=== PATIENT | male | born 1955 | race Caucasian/White ===

== ENCOUNTER 2022-06-29 08:44 | Day surgery (SDC) | payer BC ==
[2022-06-27 12:58] VITALS: BMI 30.8
[~2022-06-29 08:44] MED LIST: LACTATED RINGERS 1,000 ML IV SCH
[2022-06-29] MEDS ORDERED: LIDOCAINE 1% (10MG/ML) FOR IV START INTRADERMA ONE (09:12)
[2022-06-29 09:17] LABS: Glucose,Whole Blood 130 mg/dL (70-110)
[2022-06-29 09:19] VITALS: TEMP 97.4
[2022-06-29] MEDS ORDERED: PROPOFOL 10 MG/ML 20 ML VIAL IV ONE (10:24)
--- NOTE | 2022-06-29 10:43 | P.PCN ---
Date of Procedure: 06/29/22 Procedure(s) Performed: BRIEF HISTORY: Patient is a 66-year-old pleasant male scheduled for an elective colonoscopy as a part of screening for colorectal neoplasia. PROCEDURE PERFORMED: Colonoscopy. PREOPERATIVE DIAGNOSIS: Screening for colon cancer. IV sedation per Anesthesia. PROCEDURE: After informed consent was obtained, the patient, was brought into the endoscopy unit. IV sedation was administered by Anesthesia under continuous monitoring. Digital rectal examination was normal. Initially the Olympus CF-160 flexible video colonoscope was then inserted in the rectum, gradually advanced into the cecum without any difficulty. Careful examination was performed as the scope was gradually being withdrawn. Ileocecal valve and the appendiceal orifice were visualized and appeared normal. Prep was excellent. Mucosa of the cecum, ascending colon, transverse colon, descending colon, sigmoid colon, and rectum appeared normal. Retroflexion was performed in the rectum and no lesions were seen. The patient tolerated the procedure well. IMPRESSION: Normal-appearing colon from rectum to cecum with no evidence of colorectal neoplasia. RECOMMENDATIONS: Findings of this examination were discussed with the patient as well as his family. He was advised to have a repeat screening colonoscopy in 10 years..
[2022-06-29 11:06] VITALS: BP 138/88; PULSE 75; RESP 15
== END 2022-06-29 11:20 | disposition home or self-care (01) ==
LOC: ORWHC2ENDO 08:44
PROVIDERS: ATTEND Internal Medicine Gastroenterology
DX: Z12.11 Encounter for screening for malignant neoplasm of colon (principal); I10 Essential (primary) hypertension; E78.5 Hyperlipidemia, unspecified; E11.9 Type 2 diabetes mellitus without complications
CPT/HCPCS: 45378; J2704

== ENCOUNTER → 2024-02-11 | Outpatient (CLI) | payer BC ==
--- NOTE | 2024-02-12 07:32 | XR ---
EXAMINATION TYPE: XR KUB DATE OF EXAM: 02/11/2024 HISTORY: Pain Comparison: None. Single KUB is submitted for interpretation. Findings: Right renal calculi: None Visualized. Right ureteral calculi: None Visualized. Left renal calculi: Multiple calculi overlying the mid to lower pole left kidney with the largest ca lculus measuring 2.0 x 1.2 cm. Left ureteral calculi: None Visualized. Pelvic calcifications: 2 large calculi to the right of midline overlying the region of the urinary b ladder measuring 1.8 cm and 1.5 cm may reflect calculi within the urinary bladder or pelvic calculi o f other etiology. Correlate clinically. Additional smaller phleboliths noted. Bowel gas pattern is unremarkable. No free air. No mass effects. IMPRESSION: 1. As above
== END | disposition home or self-care (01) ==
LOC: RADXRMAIN 14:42
PROVIDERS: ATTEND Urology
DX: N20.0 Calculus of kidney (principal); N32.89 Other specified disorders of bladder
CPT/HCPCS: 74018

== ENCOUNTER → 2024-02-26 | Outpatient (CLI) | payer BC, MEDICARE ==
[2024-02-26 10:39] LABS: Basophils # (A) 0.09 X 10*3/uL (0.00-0.10); Basophils % (A) 1.1 %; Eosinophils # (A) 0.35 X 10*3/uL (0.04-0.35); Eosinophils % (A) 4.2 %; HCT 47.4 % (39.6-50.0); HGB 15.2 g/dL (13.0-17.0); Lymphocytes # (A) 2.22 X 10*3/uL (0.90-5.00); Lymphocytes % (A) 26.8 %; MCH 26.6 pg (27.0-32.0); MCHC 32.1 g/dL (32.0-37.0); MCV 82.9 FL (80.0-97.0); Mean Platelet Volume 9.6 FL (9.5-12.2); Monocytes # (A) 0.76 X 10*3/uL (0.20-1.00); Monocytes % (A) 9.2 %; NRBC Per 100 WBC 0 X 10*3/uL (0.00-0.01); Platelet Count 355 X 10*3/uL (140-440); RBC 5.72 X 10*6/uL (4.40-5.60); RDW 14.6 % (11.5-14.5); WBC 8.28 X 10*3/uL (4.50-10.00)
[2024-02-26 10:49] LABS: Blood Urea Nitrogen 25.9 mg/dL (9.0-27.0); Calcium 9.7 mg/dL (8.7-10.3); Carbon Dioxide 27.2 mmol/L (21.6-31.8); Chloride 97 mmol/L (96-109); Glucose 150 mg/dL (70-110); Potassium 4.4 mmol/L (3.5-5.5); Sodium 136 mmol/L (135-145)
== END | disposition home or self-care (01) ==
LOC: LABPAT 07:47
PROVIDERS: ATTEND Urology
DX: Z01.812 Encounter for preprocedural laboratory examination (principal); N21.0 Calculus in bladder
CPT/HCPCS: 36415; 80048; 85025

== ENCOUNTER → 2024-03-05 | Day surgery (SDC) | payer BC ==
[2024-03-03 14:03] VITALS: BMI 30.9
--- NOTE | 2024-03-03 20:12 | P.GSHP ---
History of Present Illness H&P Date: 03/03/24 Chief Complaint: Urinary retention, bladder calculi The patient is a 68-year-old white male with a history of kidney stones. He previously underwent ESWL in the remote past, which was unsuccessful. Recent renal ultrasound shows left renal calculi, left renal cyst, and multiple bladder calculi. KUB x-ray shows multiple left renal calculi measuring up to 12 x 20 mm, as well as 2 large bladder calculi measuring 15 and 18 mm. He has been found to empty his bladder incompletely and is currently taking tamsulosin, without benefit. He will likely require BPH surgery. He now comes for cystoscopy with removal of bladder calculi. - Cardiovascular Cardiovascular: Reports high blood pressure - Genitourinary (Male) Genitourinary: Reports dysuria, Reports kidney stones, Denies flank pain, Denies hematuria Past Medical History Past Medical History: Diabetes Mellitus, Hyperlipidemia, Hypertension Additional Past Medical History / Comment(s): Varicose veins. Bladder stones, slightly enlarged prostate. History of Any Multi-Drug Resistant Organisms: None Reported Past Surgical History: Orthopedic Surgery, Tonsillectomy Additional Past Surgical History / Comment(s): Right knee surgery X3- benign tumors removed, another right knee surgery, left toe surgery, benign tumor on left thumb removed. Past Anesthesia/Blood Transfusion Reactions: No Reported Reaction Smoking Status: Never smoker - Past Family History Mother Family Medical History: No Reported History Medications and Allergies Home Medications Medication Instructions Recorded Confirmed Type Atorvastatin [Lipitor] 40 mg PO QAM 06/27/22 03/03/24 History Cholecalciferol (Vitamin D3) 125 mcg PO MO 06/27/22 03/03/24 History [Vitamin D3 (125 MCG = 5,000 IU)] Empagliflozin [Jardiance] 25 mg PO QAM 06/27/22 03/03/24 History Irbesartan/Hydrochlorothiazide 1 each PO QAM 06/27/22 03/03/24 History [Irbesartan-Hctz 300-12.5 mg Tb] Pioglitazone [Actos] 30 mg PO QAM 06/27/22 03/03/24 History Semaglutide [Ozempic] 0.5 mg SQ MO 06/27/22 03/03/24 History metFORMIN HCL [Glucophage] 1,000 mg PO BID 06/27/22 03/03/24 History Tamsulosin HCl [Flomax] 0.4 mg PO HS 03/03/24 03/03/24 History Allergies Allergy/AdvReac Type Severity Reaction Status Date / Time No Known Allergies Allergy Verified 03/03/24 13:43 Surgical - Exam - General well developed, well nourished, no distress - Respiratory normal respiratory effort - Abdomen Abdomen: soft, non tender, no guarding, no rigid, no rebound - Genitourinary normal penis with no external lesions, testicles non-tender - Rectum Rectum: normal sphincter tone, no masses, other (Prostate moderately enlarged but smooth) - Psychiatric oriented to time, oriented to person, oriented to place, speech is normal, memory intact Results - Imaging Abdominal x-ray: report reviewed, image reviewed US - kidney/bladder: report reviewed Assessment and Plan (1) Calculus in bladder Status: Acute Code(s): N21.0 - CALCULUS IN BLADDER SNOMED Code(s): 28459124 Plan: Cystoscopy with cystolithotripsy. The procedure has been reviewed in detail with the patient. He has been made aware of potential risks, which include anesthesia, bleeding, infection, bladder perforation, and inability to completely remove the calculi.
[~2024-03-05] MED LIST changes: +DEXAMETHASONE SOD PHOSPHATE 10 MG/ML 1 ML VIAL ONE; +FUROSEMIDE 10 MG/ML 2 ML VIAL ONE; +GLYCOPYRROLATE 0.2 MG/ML 2 ML VIAL ONE; +HYDROmorphone (PF) 1 MG/ML ONE; +HYDROmorphone 0.5 MG/0.5 ML SYRINGE IVP PRN; -LACTATED RINGERS 1,000 ML IV SCH; +MIDAZOLAM 2 MG/2 ML VIAL IV PRN; +MIDAZOLAM 2 MG/2 ML VIAL ONE; +NEOSTIGMINE 1 MG/ML 10 ML VIAL ONE; +PHENYLEPHRINE 10 MG/ML VIAL ONE; +PROPOFOL 10 MG/ML 20 ML VIAL IV ONE; +ROCURONIUM 10 MG/ML (5 ML VIAL) IV ONE; +SUCCINYLCHOLINE CHLORIDE 200 MG/10 ML VIAL IV ONE; +ePHEDrine 50 MG/ML 1 ML VIAL ONE; +fentaNYL (PF) 50 MCG/ML 2 ML AMP ONE
[2024-03-05] MEDS: DEXAMETHASONE SOD PHOSPHATE 4 MG/ML 1 ML VIAL IV ONE (09:56)
[2024-03-05] MEDS: LACTATED RINGERS 1,000 ML IV SCH (09:56)
[2024-03-05] MEDS: ONDANSETRON 4 MG/2 ML VIAL IVP ONE (09:57)
[2024-03-05 10:01] LABS: Glucose,Whole Blood 139 mg/dL (70-110)
[2024-03-05] MEDS: IV FLUID CONTINUATION 1,000 ML IV ONE (11:15)
--- NOTE | 2024-03-05 11:26 | P.OP ---
Date of Procedure: 03/05/24 Preoperative Diagnosis: Bladder calculi Postoperative Diagnosis: Same Procedure(s) Performed: Cystoscopy with cystolithotripsy, fulguration of bleeders Anesthesia: MERLIN Surgeon: Jake Nash Estimated Blood Loss (ml): 20 IV fluids (ml): 900 Pathology: other (Bladder calculus fragments) Condition: stable Disposition: PACU Indications for Procedure: The patient is a 68-year-old white male with a history of kidney stones. He previously underwent ESWL in the remote past, which was unsuccessful. Recent renal ultrasound shows left renal calculi, left renal cyst, and multiple bladder calculi. KUB x-ray shows multiple left renal calculi measuring up to 12 x 20 mm, as well as 2 large bladder calculi measuring 15 and 18 mm. He has been found to empty his bladder incompletely and is currently taking tamsulosin, without benefit. He will likely require BPH surgery. He now comes for cystoscopy with removal of bladder calculi. Operative Findings: Significantly enlarged prostate. 2 bladder calculi, removed completely. Description of Procedure: The patient was taken to the operating room and placed in the dorsal lithotomy position, with legs supported in Ajn stirrups. The external genitalia was prepped and draped sterilely. The 30 lens was used to introduce the 21-Togolese Mcfarland cystoscopic sheath through the urethra and into the bladder under direct vision. The urethra appeared normal. The prostate showed evidence of trilobar enlargement with a large intravesical median lobe. The prostate was considerably enlarged and visually occlusive. The bladder was examined in its entirety. The ureteral orifices appeared normal. A total of 2 calculi were seen, each measuring approximately 15 mm in size. No tumors were seen. The bladder was trabeculated, but no diverticuli were seen. Using the 1000 micron Holmium laser probe, lithotripsy was performed. The calculi were very dense. Lithotripsy was continued until all calculus fragments could be removed using the Ruthannicomply evacuator. Once this was completed, the bladder was inspected. There was no active bleeding, and no evidence of bladder perforation. An 18-Togolese Higgins catheter was placed. The return was pink-tinged. 10 mg of Lasix was administered intravenously. The patient tolerated the procedure well was taken to the recovery room in stable condition.
[2024-03-05 11:38] VITALS: TEMP 97
[2024-03-05 13:08] VITALS: RESP 14
[2024-03-05 13:16] LABS: Glucose,Whole Blood 193 mg/dL (70-110)
[2024-03-05 13:50] VITALS: BP 130/78; PULSE 82
== END ==
LOC: OR 09:24
PROVIDERS: ATTEND Urology
DX: N21.0 Calculus in bladder (principal); I10 Essential (primary) hypertension; E78.5 Hyperlipidemia, unspecified; E11.9 Type 2 diabetes mellitus without complications; Z90.89 Acquired absence of other organs; Z79.899 Other long term (current) drug therapy; Z79.84 Long term (current) use of oral hypoglycemic drugs; Z98.890 Other specified postprocedural states
CPT/HCPCS: 82365; 52317; J2250; J0330; J1100 ×2; J1940; J2710; J0690; J2405; J3010; J1170; J2704; J2371

== ENCOUNTER → 2024-04-13 | Outpatient (CLI) | payer BC ==
--- NOTE | 2024-04-13 16:34 | MR ---
EXAMINATION TYPE: MR Prostate wo/w con DATE OF EXAM: 04/13/2024 7:34 AM COMPARISON: None. CLINICAL INDICATION:Male, 68 years old with history of R97.20 elevated PSA; BPH with obstruction, kedar vated PSA. TECHNIQUE: Multi-planar, multi-sequence imaging of the pelvis is performed prior to and following the uncomplicated administration of bolus intravenous gadolinium. CONTRAST: 10 Gadavist Interpretive Criteria: PI-RADS v2.1 SERUM PSA: -24 = 3.74 6-07-26 = 3.24 SURGICAL PATHOLOGY: No data available. FINDINGS: Prostatic dimensions: 6.7 x 6.2 x 5.0 cm. Ellipsoid Volume:108.75 (PSA density=0.03 ng/mL/mL) CENTRAL GLAND (Central and Transition Zones/CZ+TZ): Multiple bilateral, heterogenous appearing hypertrophic stromal nodules, without suspicious lesion. M edian lobe hypertrophy with protrusion into the base of the bladder. (PI-RADS 2) PERIPHERAL ZONE (PZ): Bilateral linear, indistinct wedgelike areas of low ADC, and low T2 signal, No evidence of masslike a bnormality, or localized perfusional hypervascularity, to further suggest a focus of clinically signi ficant prostate cancer. (PI-RADS 2) SEMINAL VESICLES (SV): Symmetric and unremarkable. PERIPROSTATIC TISSUES: Unremarkable. LYMPH NODES: No enlarged pelvic lymph node. REMAINING PELVIS: Bladder wall is within normal limits given distention. No abnormal free or organized intrapelvic fluid collection. No pathologic bowel dilation or mural thickening. No hernia visualized OSSEOUS STRUCTURES: No suspicious osseous abnormality. IMPRESSION: 1. No specific features for high-risk prostate cancer. Maximum PI-RADS score: 2. 2. Substantial BPH, estimated gland volume 108.75 mL. 3. No suspicious osseous lesion. No lymphadenopathy. No evidence of prostate adenocarcinoma involving the periprostatic tissues.
== END | disposition home or self-care (01) ==
LOC: RADMRIMAIN 06:01
PROVIDERS: ATTEND Urology
DX: N40.1 Benign prostatic hyperplasia with lower urinary tract symptoms (principal); N13.8 Other obstructive and reflux uropathy; R97.20 Elevated prostate specific antigen [PSA]
CPT/HCPCS: 72197; A9585

== ENCOUNTER → 2024-09-02 | Outpatient (CLI) | payer BC ==
[2024-09-02 08:35] LABS: African American GFR (CKD) >90 (>60 ml/min/1.73 sqM); Blood Urea Nitrogen 24 mg/dL (9-20); Non-African American GFR(CKD) 88 (>60 ml/min/1.73 sqM); Phosphorus 3.9 mg/dL (2.5-4.5)
--- NOTE | 2024-09-02 09:52 | CT ---
EXAMINATION TYPE: CT chest w con DATE OF EXAM: 09/02/2024 8:54 AM COMPARISON: Chest radiograph from same day. Multiple CTs of the chest with most recent on . CLINICAL INDICATION: Male, 68 years old with history of J84.9 INTER PULMONARY DISEASE, abnormal findi ngs, interstitial pulmonary disease TECHNIQUE: Multiple axial images were obtained through the chest. Sagittal and coronal reformats were created for review. MIP was performed on a separate workstation. Contrast used:100 mL of Isovue 300 with IV Contrast (None if empty) Oral contrast used: (None if empty) CT DLP: 658 mGycm, Automated exposure control for dose reduction was used. FINDINGS: LUNGS/ PLEURA: No evidence for focal consolidation, pneumothorax or pleural effusion. Streaky atelect asis in the lung bases. Mild intralobular septal thickening associated with dependent portions. AIRWAY: Patent and unremarkable. HEART: Size within normal limits.Atherosclerosis of the arterial vasculature. MEDIASTINUM: No gross evidence of adenopathy. VASCULATURE: No aortic aneurysm. MUSCULOSKELETAL: Severe disc degeneration changes are present throughout the thoracolumbar spine. Sabra dging anterior syndesmophytes are seen throughout the thoracic spine. SOFT TISSUES/LYMPH NODES: Unremarkable. LOWER NECK: No significant findings. UPPER ABDOMEN: Diffuse low-attenuation to the liver parenchyma. Small splenule is present. IMPRESSION: 1. Mild pulmonary edema suggested correlate with serum BNP. No other acute thoracic process. 2. Streaky atelectasis in the lung bases. 3. Moderate to severe coronary artery atherosclerosis. 4. Moderate to severe degeneration changes spine with diffuse idiopathic skeletal hyperostosis. Up recommendations for incidental pulmonary nodules, if there are any, are per [employer]ischner?s [employer] [employer] or [employer]. https://radiopaedia.org/articles/tljzpzkqyq-lpkxjdq-ryzxllmsj-[email or web address]-[email or web address]-[email or web address]?lang=us [facility], , 09/02/2024 9:50 AM
== END | disposition home or self-care (01) ==
LOC: RADCTMAIN 07:40
PROVIDERS: ATTEND Internal Medicine Critical Care Medicine
CPT/HCPCS: 36415; 71260; 82164; 82306; 82565; 83970; 84100; 84520; 85652